=== PATIENT | female | born 1965 | race Caucasian/White ===

== ENCOUNTER → 2017-01-01 | Outpatient (CLI) | payer MEDICARE, MEDICAID ==
[~2017-01-01] MED LIST: ASPI81TA83 OR; FURO20TA2 OR; GABAPOW41 PO; IBUP600T OR; MYLI40DR OR; PAXIL PO; POTA-77 PO; RANTIDINE PO; VERAMIST; VICODIN PO; VITAMIN B PO; VITAMIN D PO
--- NOTE | 2017-01-01 14:34 | REP ---
CT LUMBAR SPINE WITHOUT CONTRAST: HISTORY: Back pain. Comparison CT 10/21/2008 and MR of 05/31/2012. A rudimentary disc is present at the S1-2 level. There is no disc bulge or herniation at the L1-2 through L3-4 levels. There is hypertrophy of the posterior articulating facets at the L3-4 level. The nerves exit the neural foramina without compression. A diffuse disc bulge is present at the L4-5 level. There is minimal compression of the thecal sac. There is hypertrophy of the posterior articulating facets. There compression of the right L4 nerve and the neural foramen. The left L4 nerve exits the neural foramen without compression. A diffuse disc bulge is present at the L5-S1 level. There is minimal compression of the thecal sac. There is hypertrophy of the posterior articulating facets. There is compression of the L5 nerves in the neural foramina. The L3-4 through L5-S1 intervertebral discs are decreased in height. Vacuum phenomenon is present at the L5-S1 level. These findings are consistent with disc degeneration. There is scoliosis convex to the left. IMPRESSION: 1. Diffuse disc bulge at the L4-5 level with minimal thecal sac compression. There is compression of the right L4 nerve in the neural foramen. This is a new finding. 2. There is a diffuse bulge at the L5-S1 level with minimal thecal sac compression. There is compression of the L5 nerves in the neural foramina. The L5 nerve compression is a new finding. Signed by Santy Montes MD 01/01/2017 02:46 P
== END ==
LOC: M RAD 13:30
PROVIDERS: ATTEND Physician Assistant Medical
DX: M51.06 Intervertebral disc disorders with myelopathy, lumbar region (principal); M48.06 Spinal stenosis, lumbar region; M47.896 Other spondylosis, lumbar region

== ENCOUNTER → 2017-03-22 | Outpatient (CLI) | payer MEDICARE, OTHER ==
--- NOTE | 2017-03-22 15:10 | REP ---
Clinical: Chronic chest pain. Technique: PA and lateral. Comparison: 08/27/2011. Findings: Evidence of prior sternotomy as well as pleural parenchymal changes and old rib fractures involving the left hemithorax are essentially stable. The right hemithorax is well-aerated and clear. The cardiac silhouette is unchanged. No acute cardiopulmonary process identified. No focal consolidation, effusion, or pneumothorax. Impression: Chronic stable changes primarily involving the left hemithorax. No obvious acute process. If the patient remains symptomatic consider chest CT for further investigation.
--- NOTE | 2017-03-22 15:24 | REP ---
Lumbar spine seven views including lateral views with flexion and extension: Comparison is 11/24/2009. There is mild scoliosis convex left, unchanged. Vertebral body heights and alignment are normal and unchanged. No compression deformities. There is no spondylolysis or spondylolisthesis. There is no disc space narrowing as previously. However, there are small anterior osteophytes at T11-12, L1-2, L3-4, L4-5 and L5 S1 compatible with mild multilevel degenerative disc disease. This is unchanged. The pedicles, facet articulations and sacroiliac articulations are unremarkable and unchanged. There are multiple old healed left lower rib fractures, unchanged. There is a Coretta filter in the vena cava, unchanged. There is a surgical staple line in the abdominal right lower quadrant, unchanged. There are multiple pelvic calcifications, unchanged, likely phleboliths. There is no listhesis on the lateral views with flexion or extension. Impression: Mild scoliosis. Multilevel mild degenerative disc disease. No listhesis. No listhesis on flexion or extension. No significant change from the prior study. If symptoms persist or worsen, consider MRI. Signed by Tyler Guerrero MD 03/22/2017 03:16 P
--- NOTE | 2017-03-22 15:29 | REP ---
AP view of the pelvis: Single view. History: Chronic pain. Chest pain. Comparison study is from January 02, 2007. Findings: There is old post-traumatic deformity of the inferior pubic ramus on the right and possibly the left. The 2006 study shows fractures there. There are sutures in the right lower abdomen. Pelvic phleboliths are noted. Sacrum and SI joints are intact. Hip joint spaces are preserved. There is a mild levoconvex curve in the lumbar spine and there is a vena cava filter noted at the top of the imaging field of view. 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 Mild osteoarthritis of the hips bilaterally. Postoperative changes in the abdomen.
== END ==
LOC: M CLY 14:09
PROVIDERS: ATTEND Family Medicine
DX: M51.34 Other intervertebral disc degeneration, thoracic region (principal); M51.37 Other intervertebral disc degeneration, lumbosacral region; M51.36 Other intervertebral disc degeneration, lumbar region; M41.9 Scoliosis, unspecified; M16.0 Bilateral primary osteoarthritis of hip; Z87.81 Personal history of (healed) traumatic fracture; R07.89 Other chest pain; M54.42 Lumbago with sciatica, left side

== ENCOUNTER → 2017-11-29 | Outpatient (CLI) | payer MEDICARE | LOC: M WHC 08:28 | DX: Z01.419 Encounter for gynecological examination (general) (routine) without abnormal findings (principal); Z12.31 Encounter for screening mammogram for malignant neoplasm of breast (principal); Z12.12 Encounter for screening for malignant neoplasm of rectum | CPT/HCPCS: 77067 ==

== ENCOUNTER → 2018-09-16 | Outpatient (REF) | payer MEDICARE ==
[2018-09-16 16:44] LABS: RHEUMATOID FACTOR QUANT < 10.0 IU/ML (<15.0)
[2018-09-16 17:23] LABS: ERYTHROCYTE SEDIMENTATION RATE 8 mm/hr (0-30)
[2018-09-18 14:22] LABS: ANTINUCLEAR ANTIBODIES DIRECT Negative (Negative)
[2018-09-23 10:06] LABS: DRVV SCREEN 39.4 SEC
== END ==
LOC: M LABDRAWC 16:12
DX: M25.50 Pain in unspecified joint (principal); R21 Rash and other nonspecific skin eruption
CPT/HCPCS: 85730

== ENCOUNTER → 2018-10-24 | Outpatient (REF) | payer MEDICARE ==
[2018-10-24 16:22] LABS: HEMATOCRIT 42.6 % (36.0-47.0); HEMOGLOBIN 13.7 g/dl (12.0-15.5); MEAN CORPUSCULAR HEMOGLOBIN 29.2 pg (27.0-33.0); MEAN CORPUSCULAR HGB CONC 32.2 g/dl (32.0-36.5); MEAN CORPUSCULAR VOLUME 90.8 fl (80.0-96.0); PLATELET COUNT, AUTOMATED 208 10^3/uL (150-450); RED BLOOD COUNT 4.69 10^6/uL (4.00-5.40); RED CELL DISTRIBUTION WIDTH 13.2 % (11.5-14.5); WHITE BLOOD COUNT 5.2 10^3/uL (4.0-10.0)
[2018-10-24 16:25] LABS: BLOOD UREA NITROGEN 12 MG/DL (7-18); CREATININE FOR GFR 0.62 MG/DL (0.55-1.30); GLUCOSE, FASTING 89 MG/DL (70-100)
[2018-10-24 16:26] LABS: ALBUMIN 4.1 GM/DL (3.2-5.2); ALBUMIN/GLOBULIN RATIO 1.37 (1.00-1.93); ALKALINE PHOSPHATASE 75 U/L (45-117); ALT/SGPT 18 U/L (12-78); ANION GAP 8 MEQ/L (8-16); AST/SGOT 13 U/L (7-37); BILIRUBIN,TOTAL 0.4 MG/DL (0.2-1.0); CARBON DIOXIDE LEVEL 28 MEQ/L (21-32); CHLORIDE LEVEL 105 MEQ/L (98-107); CHOLESTEROL LEVEL 190 MG/DL (<200); CHOLESTEROL RISK RATIO 2.533 (<5); GLOMERULAR FILTRATION RATE > 60.0 (>51); HDL CHOLESTEROL 75 MG/DL (>40); LDL CHOLESTEROL 96 MG/DL (<100); NON-HDL-C 115 MG/DL; POTASSIUM SERUM 3.9 MEQ/L (3.5-5.1); SODIUM LEVEL 141 MEQ/L (136-145); TOTAL PROTEIN 7.1 GM/DL (6.4-8.2); TRIGLYCERIDES LEVEL 93 MG/DL (<150)
== END ==
LOC: M SFHCCLAY 10:50
DX: M79.7 Fibromyalgia (principal); Z86.79 Personal history of other diseases of the circulatory system
CPT/HCPCS: 80053

== ENCOUNTER → 2018-10-24 | Outpatient (CLI) | payer MEDICARE | LOC: M CLY 11:47 | DX: M25.752 Osteophyte, left hip (principal); M25.552 Pain in left hip | CPT/HCPCS: 73502 ==

== ENCOUNTER → 2018-12-01 | Outpatient (CLI) | payer MEDICARE ==
--- NOTE | 2018-12-01 10:37 | REPMRS ---
Patient History The patient states she had a clinical breast exam in 11/2018. Patient is postmenopausal. Family history of ovarian cancer in paternal aunt. Taking estrogen for 4 years. 3D TOMOSYNTHESIS WAS PERFORMED. Digital Woman Screen Mammo: December 01, 2018 - Exam #: [id number] Bilateral CC and MLO view(s) were taken. Technologist: Deb Bennett, Technologist Prior study comparison: November 29, 2017, digital woman screen mammo performed at [facility] to [facility]. July 03, 2016, digital woman screen mammo performed at [facility] to [facility]. FINDINGS: There are scattered fibroglandular densities. There has been no change in the appearance of the mammogram from the prior studies. There is a mild amount of residual fibroglandular tissue which is fairly symmetric. There is no interval development of dominant mass, architectural distortion, or clustered microcalcification suggestive of malignancy. Assessment: BI-RADS/ACR category 1 mammogram. Negative Mammogram. Recommendation Routine screening mammogram in 1 year (for women over age 40). This mammogram was interpreted with the aid of an FDA-approved computer-aided dectection system. Electronically Signed By: Tyler Ojeda MD 12/01/18 [id number]
== END ==
LOC: M WHC 09:03
PROVIDERS: ATTEND Nurse Practitioner Women's Health
DX: Z01.419 Encounter for gynecological examination (general) (routine) without abnormal findings (principal); Z12.31 Encounter for screening mammogram for malignant neoplasm of breast; Z78.0 Asymptomatic menopausal state; Z92.23 Personal history of estrogen therapy
CPT/HCPCS: 77063; 77067; G0101

== ENCOUNTER → 2019-11-05 | Outpatient (REF) | payer MEDICARE ==
[2019-11-05 11:47] LABS: HEMATOCRIT 41.7 % (36.0-47.0); HEMOGLOBIN 13.3 g/dl (12.0-15.5); MEAN CORPUSCULAR HGB CONC 31.9 g/dl (32.0-36.5); PLATELET COUNT, AUTOMATED 226 10^3/uL (150-450); RED BLOOD COUNT 4.58 10^6/uL (4.00-5.40); WHITE BLOOD COUNT 6.9 10^3/uL (4.0-10.0)
[2019-11-05 12:11] LABS: ALBUMIN 3.8 GM/DL (3.2-5.2); ALT/SGPT 23 U/L (12-78); BILIRUBIN,TOTAL 0.5 MG/DL (0.2-1.0); BLOOD UREA NITROGEN 10 MG/DL (7-18); CARBON DIOXIDE LEVEL 26 MEQ/L (21-32); CHLORIDE LEVEL 110 MEQ/L (98-107); CHOLESTEROL LEVEL 187 MG/DL (<200); CHOLESTEROL RISK RATIO 2.791 (<5); CREATININE FOR GFR 0.63 MG/DL (0.55-1.30); GLOMERULAR FILTRATION RATE > 60.0 (>51); GLUCOSE, FASTING 82 MG/DL (70-100); HDL CHOLESTEROL 67 MG/DL (>40); LDL CHOLESTEROL 104 MG/DL (<100); NON-HDL-C 120 MG/DL; POTASSIUM SERUM 3.7 MEQ/L (3.5-5.1); SODIUM LEVEL 144 MEQ/L (136-145); TOTAL PROTEIN 6.9 GM/DL (6.4-8.2); TRIGLYCERIDES LEVEL 80 MG/DL (<150)
== END ==
LOC: M SFHCCLAY 07:08
PROVIDERS: ATTEND Family Medicine
DX: K43.2 Incisional hernia without obstruction or gangrene (principal); I10 Essential (primary) hypertension

== ENCOUNTER → 2019-12-02 | Outpatient (CLI) | payer MEDICARE ==
--- NOTE | 2019-12-02 10:29 | REP ---
BILATERAL SCREENING DIGITAL MAMMOGRAM WITH 3D TOMOSYNTHESIS: There are no palpable abnormalities or other breast complaints. The the patient states she had a clinical breast examination November,. The Tyrer-Cuzick Score is: 8.0% . Comparison is 03/25/2014. There are scattered areas of fibroglandular density. There is no dominant mass, micro calcific cluster or architectural distortion that would indicate malignancy. There are no additional findings on 3D tomosynthesiss. There is no change from the prior study. Impression: BIRADS/ACR category 1 mammogram. Negative. Recommendation: Routine annual screening mammography. This mammogram was interpreted with the aid of a FDA approved computer-aided detection system. A. Negative mammogram reports should not delay biopsy if a dominant or clinically suspicious mass is present. B. Not all breast cancers are identified by mammography or tomosynthesis. C. Adenosis and dense breasts may obscure an underlying neoplasm. Patient letter M1. Electronically Signed by Tyler Guerrero MD 12/02/2019 10:20 A
== END ==
LOC: M WHC 08:48
PROVIDERS: ATTEND Nurse Practitioner Women's Health
DX: Z01.419 Encounter for gynecological examination (general) (routine) without abnormal findings (principal); Z12.31 Encounter for screening mammogram for malignant neoplasm of breast
CPT/HCPCS: 77063; 77067; G0101; G0463

== ENCOUNTER → 2020-11-02 | Outpatient (REF) | payer MEDICARE ==
[2020-11-02 12:02] LABS: ALBUMIN 3.8 GM/DL (3.2-5.2); ALT/SGPT 15 U/L (12-78); BILIRUBIN,TOTAL 0.5 MG/DL (0.2-1.0); BLOOD UREA NITROGEN 13 MG/DL (7-18); CARBON DIOXIDE LEVEL 29 MEQ/L (21-32); CHLORIDE LEVEL 106 MEQ/L (98-107); CHOLESTEROL LEVEL 182 MG/DL (<200); CHOLESTEROL RISK RATIO 2.676 (<5); CREATININE FOR GFR 0.62 MG/DL (0.55-1.30); FREE T4 0.88 NG/DL (0.76-1.46); GLOMERULAR FILTRATION RATE > 60.0 (>51); GLUCOSE, FASTING 82 MG/DL (70-100); HDL CHOLESTEROL 68 MG/DL (>40); LDL CHOLESTEROL 99 MG/DL (<100); NON-HDL-C 114 MG/DL; SODIUM LEVEL 141 MEQ/L (136-145); TOTAL PROTEIN 6.6 GM/DL (6.4-8.2); TRIGLYCERIDES LEVEL 77 MG/DL (<150)
[2020-11-02 12:05] LABS: VITAMIN B12 LEVEL 388 PG/ML (247-911)
[2020-11-02 13:29] LABS: HEMOGLOBIN A1c 5.4 %
== END ==
LOC: M SFHCCLAY 07:06
PROVIDERS: ATTEND Family Medicine
DX: R20.2 Paresthesia of skin (principal); I10 Essential (primary) hypertension; Z79.899 Other long term (current) drug therapy

== ENCOUNTER → 2020-12-08 | Outpatient (CLI) | payer MEDICARE ==
--- NOTE | 2020-12-08 12:50 | REPMRS ---
Patient History The patient states she had a clinical breast exam in December 2020.Family history of ovarian cancer in paternal aunt. Taking estrogen for 4 years. Digital Woman Screen Mammo: December 08, 2020 - Exam #: [id number] Bilateral CC and MLO view(s) were taken. Technologist: Yasmeen Michel, Technologist Prior study comparison: December 02, 2019, bilateral digital woman screen mammo performed at [facility]. December 01, 2018, bilateral digital woman screen mammo performed at [facility]. November 29, 2017, digital woman screen mammo performed at [facility]. FINDINGS: There are scattered fibroglandular densities. The Volpara volumetric breast density category is:B. There has been no change in the appearance of the mammogram from the prior studies. There is a mild amount of scattered fibroglandular density which is fairly symmetric. There is no interval development of dominant mass, architectural distortion, or grouped microcalcification suggestive of malignancy. 3-D tomosynthesis shows no additional findings. Assessment: BI-RADS/ACR category 1 mammogram. Negative Mammogram. Recommendation Routine screening mammogram of both breasts in 1 year (for women over age 40). This patient's [facility] Lifetime Breast Cancer Risk is estimated at 7.8 %. This mammogram was interpreted with the aid of an FDA-approved computer-aided dectection system. Electronically Signed By: Lopez Recinos MD 12/08/20 [id number]
== END ==
LOC: M WHC 11:15
PROVIDERS: ATTEND Nurse Practitioner Women's Health
DX: Z01.419 Encounter for gynecological examination (general) (routine) without abnormal findings (principal); Z12.31 Encounter for screening mammogram for malignant neoplasm of breast; Z92.23 Personal history of estrogen therapy
CPT/HCPCS: 77063; 77067; G0101

== ENCOUNTER → 2021-01-17 | Outpatient (REF) | payer MEDICARE ==
[2021-01-17 13:48] LABS: ALBUMIN 3.5 GM/DL (3.2-5.2); ALT/SGPT 25 U/L (12-78); BILIRUBIN,TOTAL 0.2 MG/DL (0.2-1.0); BLOOD UREA NITROGEN 18 MG/DL (7-18); CARBON DIOXIDE LEVEL 30 MEQ/L (21-32); CHLORIDE LEVEL 108 MEQ/L (98-107); CREATININE FOR GFR 0.56 MG/DL (0.55-1.30); FREE T4 0.75 NG/DL (0.76-1.46); GLOMERULAR FILTRATION RATE > 60.0 (>51); GLUCOSE, FASTING 81 MG/DL (70-100); SODIUM LEVEL 141 MEQ/L (136-145); TOTAL PROTEIN 6.5 GM/DL (6.4-8.2)
== END ==
LOC: M LABDRWAD 11:33
PROVIDERS: ATTEND Physician Assistant
DX: I11.9 Hypertensive heart disease without heart failure (principal); R00.2 Palpitations

== ENCOUNTER → 2022-01-18 | Outpatient (CLI) | payer MEDICARE | LOC: M WHC 09:56 | PROVIDERS: ATTEND Advanced Practice Midwife | DX: Z12.31 Encounter for screening mammogram for malignant neoplasm of breast (principal); N64.52 Nipple discharge; Z78.0 Asymptomatic menopausal state; Z92.23 Personal history of estrogen therapy | CPT/HCPCS: 76642; 77066; G0279 ==

== ENCOUNTER → 2022-06-01 | Outpatient (REF) | payer MEDICARE ==
[2022-06-01 11:54] LABS: HEMATOCRIT 39.5 % (36.0-47.0); HEMOGLOBIN 13.1 g/dl (12.0-15.5); MEAN CORPUSCULAR HEMOGLOBIN 30.1 pg (27.0-33.0); MEAN CORPUSCULAR HGB CONC 33.2 g/dl (32.0-36.5); MEAN CORPUSCULAR VOLUME 90.8 fl (80.0-96.0); PLATELET COUNT, AUTOMATED 242 10^3/uL (150-450); RED BLOOD COUNT 4.35 10^6/uL (4.00-5.40); WHITE BLOOD COUNT 5.9 10^3/uL (4.0-10.0)
[2022-06-01 12:29] LABS: ALBUMIN 3.7 GM/DL (3.2-5.2); ALT/SGPT 20 U/L (12-78); BILIRUBIN,TOTAL 0.4 MG/DL (0.2-1.0); BLOOD UREA NITROGEN 16 MG/DL (7-18); CALCIUM LEVEL 9.3 MG/DL (8.5-10.1); CARBON DIOXIDE LEVEL 28 MEQ/L (21-32); CHLORIDE LEVEL 108 MEQ/L (98-107); FREE T4 0.81 NG/DL (0.76-1.46); GLOMERULAR FILTRATION RATE > 60.0 (>51); GLUCOSE, FASTING 92 MG/DL (70-100); MAGNESIUM LEVEL 2.2 MG/DL (1.8-2.4); NT-PRO BNP 47 PG/ML (<125); POTASSIUM SERUM 4.1 MEQ/L (3.5-5.1); SODIUM LEVEL 141 MEQ/L (136-145)
== END ==
LOC: M LABDRAWC 11:23
PROVIDERS: ATTEND Physician Assistant
DX: R06.02 Shortness of breath (principal); R00.2 Palpitations

== ENCOUNTER → 2023-01-21 | Outpatient (CLI) | payer MEDICARE | LOC: M WHC 09:54 | PROVIDERS: ATTEND Family Medicine | DX: Z12.31 Encounter for screening mammogram for malignant neoplasm of breast (principal) ==

== ENCOUNTER → 2023-05-30 | Outpatient (REF) | payer MEDICARE ==
[2023-05-30 11:30] LABS: HEMATOCRIT 39.1 % (36.0-47.0); HEMOGLOBIN 12.8 g/dl (12.0-15.5); MEAN CORPUSCULAR HEMOGLOBIN 29.5 pg (27.0-33.0); MEAN CORPUSCULAR HGB CONC 32.7 g/dl (32.0-36.5); MEAN CORPUSCULAR VOLUME 90.1 fl (80.0-96.0); PLATELET COUNT, AUTOMATED 227 10^3/uL (150-450); RED BLOOD COUNT 4.34 10^6/uL (4.00-5.40); WHITE BLOOD COUNT 6.3 10^3/uL (4.0-10.0)
[2023-05-30 11:34] LABS: ALBUMIN 3.8 G/DL (3.2-5.2); ALKALINE PHOSPHATASE 66 U/L (46-116); ALT/SGPT 14 U/L (7.0-40); AST/SGOT 9 U/L (<34); BILIRUBIN,TOTAL 0.4 MG/DL (0.3-1.2); BLOOD UREA NITROGEN 11 MG/DL (9-23); CARBON DIOXIDE LEVEL 27 MMOL/L (20-31); CHLORIDE LEVEL 108 MMOL/L (98-107); CHOLESTEROL LEVEL 174 MG/DL (<200); CHOLESTEROL RISK RATIO 2.35 (<5); CREATININE FOR GFR 0.55 MG/DL (0.55-1.30); GLOMERULAR FILTRATION RATE > 60.0 (>51); GLUCOSE, FASTING 89 MG/DL (60-100); LDL CHOLESTEROL 85.2 MG/DL (<100); SODIUM LEVEL 143 MMOL/L (136-145); TOTAL PROTEIN 6.6 G/DL (5.7-8.2); TRIGLYCERIDES LEVEL 74 MG/DL (<150)
[2023-05-30 11:36] LABS: THYROID STIMULATING HORMONE 1.967 uIU/ML (0.55-4.78)
== END ==
LOC: M SFHCCLAY 07:40
PROVIDERS: ATTEND Family Medicine
DX: K21.9 Gastro-esophageal reflux disease without esophagitis (principal); I10 Essential (primary) hypertension; Z86.79 Personal history of other diseases of the circulatory system

== ENCOUNTER → 2023-06-21 | Outpatient (REF) | payer MEDICARE | LOC: M SFHCCLAY 09:57 | PROVIDERS: ATTEND Family Medicine | DX: L82.1 Other seborrheic keratosis (principal) ==

== ENCOUNTER → 2023-09-03 | Outpatient (REF) | payer MEDICARE | LOC: M SFHCCLAY 14:21 | PROVIDERS: ATTEND Physician Assistant | DX: R50.9 Fever, unspecified (principal) ==

== ENCOUNTER → 2024-01-09 | Outpatient (REF) | payer MEDICARE | LOC: M SFHCCLAY 10:27 | PROVIDERS: ATTEND Family Medicine | DX: I10 Essential (primary) hypertension (principal); Z86.79 Personal history of other diseases of the circulatory system; K21.9 Gastro-esophageal reflux disease without esophagitis; R20.2 Paresthesia of skin ==

== ENCOUNTER → 2024-01-23 | Outpatient (REF) | payer MEDICARE ==
[2024-01-23 12:02] LABS: HEMATOCRIT 36.7 % (36.0-47.0); HEMOGLOBIN 12.3 g/dl (12.0-15.5); MEAN CORPUSCULAR HEMOGLOBIN 29.1 pg (27.0-33.0); MEAN CORPUSCULAR HGB CONC 33.5 g/dl (32.0-36.5); MEAN CORPUSCULAR VOLUME 86.8 fl (80.0-96.0); PLATELET COUNT, AUTOMATED 261 10^3/uL (150-450); RED BLOOD COUNT 4.23 10^6/uL (4.00-5.40); WHITE BLOOD COUNT 5.9 10^3/uL (4.0-10.0)
[2024-01-23 12:31] LABS: ALBUMIN 3.6 G/DL (3.2-5.2); ALKALINE PHOSPHATASE 74 U/L (46-116); ALT/SGPT 103 U/L (7.0-40); AST/SGOT 43 U/L (<34); BILIRUBIN,TOTAL 0.5 MG/DL (0.3-1.2); BLOOD UREA NITROGEN 11 MG/DL (9-23); CALCIUM LEVEL 8.9 MG/DL (8.5-10.1); CARBON DIOXIDE LEVEL 29 MMOL/L (20-31); CHLORIDE LEVEL 110 MMOL/L (98-107); CHOLESTEROL LEVEL 148 MG/DL (<200); CHOLESTEROL RISK RATIO 2.73 (<5); CREATININE FOR GFR 0.56 MG/DL (0.55-1.30); GLOMERULAR FILTRATION RATE > 60.0 (>51); GLUCOSE, FASTING 90 MG/DL (60-100); HDL CHOLESTEROL 54.1 MG/DL (>40); LDL CHOLESTEROL 76.9 MG/DL (<100); NON-HDL-C 93.9 MG/DL; POTASSIUM SERUM 3.7 MMOL/L (3.5-5.1); SODIUM LEVEL 143 MMOL/L (136-145); THYROID STIMULATING HORMONE 1.665 uIU/ML (0.55-4.78); TOTAL PROTEIN 6.3 G/DL (5.7-8.2); TRIGLYCERIDES LEVEL 85 MG/DL (<150)
[2024-01-23 12:32] LABS: FREE T4 1.15 NG/DL (0.89-1.76)
[2024-01-23 13:06] LABS: HEMOGLOBIN A1c 5.5 % (4.0-6.0)
== END ==
LOC: M SFHCCLAY 07:07
PROVIDERS: ATTEND Family Medicine
DX: I10 Essential (primary) hypertension (principal); Z86.79 Personal history of other diseases of the circulatory system; K21.9 Gastro-esophageal reflux disease without esophagitis; R20.2 Paresthesia of skin; Z79.899 Other long term (current) drug therapy

== ENCOUNTER → 2024-02-07 | Outpatient (CLI) | payer MEDICARE, SELFPAY | LOC: M WHC 08:54 | PROVIDERS: ATTEND Family Medicine | DX: Z12.31 Encounter for screening mammogram for malignant neoplasm of breast (principal) ==

== ENCOUNTER → 2024-02-14 | Outpatient (REF) | payer MEDICARE ==
[2024-02-14 12:30] LABS: IRON (FE) 102 UG/DL (50-170)
[2024-02-14 12:32] LABS: HEPATITIS B SURFACE ANTIBODY NEGATIVE (POSITIVE); PERCENT SATURATION 30.6 % (13.2-45.0); TOTAL IRON BINDING CAPACITY 333 UG/DL (250-425)
[2024-02-14 13:04] LABS: HEPATITIS C VIRUS ABY INDEX < 0.02 INDEX (<0.8)
== END ==
LOC: M SFHCCLAY 07:16
PROVIDERS: ATTEND Family Medicine
DX: R74.01 Elevation of levels of liver transaminase levels (principal); Z72.89 Other problems related to lifestyle; Z11.59 Encounter for screening for other viral diseases

== ENCOUNTER → 2024-03-12 | Outpatient (REF) | payer MEDICARE ==
[2024-03-12 12:05] LABS: ALBUMIN 3.3 G/DL (3.2-5.2); BILIRUBIN,DIRECT 0.1 MG/DL (<0.4); BILIRUBIN,TOTAL 0.5 MG/DL (0.3-1.2); TOTAL PROTEIN 6.2 G/DL (5.7-8.2)
== END ==
LOC: M SFHCCLAY 07:00
PROVIDERS: ATTEND Family Medicine
DX: R74.01 Elevation of levels of liver transaminase levels (principal)

== ENCOUNTER → 2024-04-16 | Outpatient (REF) | payer MEDICARE ==
[2024-04-16 12:10] LABS: ALBUMIN 3.8 G/DL (3.2-5.2); BILIRUBIN,DIRECT 0.1 MG/DL (<0.4); BILIRUBIN,TOTAL 0.5 MG/DL (0.3-1.2); TOTAL PROTEIN 6.7 G/DL (5.7-8.2)
== END ==
LOC: M SFHCCLAY 08:04
PROVIDERS: ATTEND Family Medicine
DX: K21.9 Gastro-esophageal reflux disease without esophagitis (principal); K75.9 Inflammatory liver disease, unspecified

== ENCOUNTER → 2024-09-18 | Outpatient (CLI) | payer MEDICARE | LOC: M CLY 11:26 | PROVIDERS: ATTEND Family Medicine | DX: M25.562 Pain in left knee (principal); Z53.9 Procedure and treatment not carried out, unspecified reason ==

== ENCOUNTER → 2024-09-18 | Outpatient (CLI) | payer MEDICARE | LOC: M CLY 13:13 | PROVIDERS: ATTEND Family Medicine | DX: M25.562 Pain in left knee (principal) ==

== ENCOUNTER → 2024-10-05 | Outpatient (CLI) | payer MEDICARE | LOC: M CARPUL 07:45 | PROVIDERS: ATTEND Physician Assistant | DX: R06.02 Shortness of breath (principal) ==

== ENCOUNTER → 2025-02-08 | Outpatient (CLI) | payer MEDICARE | LOC: M WHC 07:49 | PROVIDERS: ATTEND Physician Assistant | DX: Z12.31 Encounter for screening mammogram for malignant neoplasm of breast (principal); R92.323 Mammographic fibroglandular density, bilateral breasts ==

== ENCOUNTER → 2025-02-22 | Outpatient (REF) | payer MEDICARE ==
[2025-02-22 14:36] LABS: ALBUMIN 3.9 G/DL (3.2-5.2); ALKALINE PHOSPHATASE 64 U/L (35-104); ALT/SGPT 13 U/L (7.0-40); AST/SGOT 12 U/L (<34); BILIRUBIN,TOTAL 0.5 MG/DL (0.3-1.2); BLOOD UREA NITROGEN 12 MG/DL (9-23); CALCIUM LEVEL 8.8 MG/DL (8.3-10.6); CARBON DIOXIDE LEVEL 30 MMOL/L (20-31); CHLORIDE LEVEL 106 MMOL/L (98-107); CHOLESTEROL LEVEL 180 MG/DL (<200); CHOLESTEROL RISK RATIO 2.41 (<5); CREATININE FOR GFR 0.54 MG/DL (0.55-1.30); GLOMERULAR FILTRATION RATE > 90.0 (>45); GLUCOSE, FASTING 90 MG/DL (74-106); HDL CHOLESTEROL 74.6 MG/DL (>40); LDL CHOLESTEROL 93.6 MG/DL (<100); NON-HDL-C 105.4 MG/DL; POTASSIUM SERUM 4.1 MMOL/L (3.5-5.1); SODIUM LEVEL 142 MMOL/L (136-145); TOTAL PROTEIN 6.4 G/DL (5.7-8.2); TRIGLYCERIDES LEVEL 59 MG/DL (<150)
== END ==
LOC: M SFHCCLAY 07:09
PROVIDERS: ATTEND Physician Assistant
DX: I10 Essential (primary) hypertension (principal); F32.5 Major depressive disorder, single episode, in full remission; K21.9 Gastro-esophageal reflux disease without esophagitis; Z90.710 Acquired absence of both cervix and uterus; Z12.11 Encounter for screening for malignant neoplasm of colon; Z79.899 Other long term (current) drug therapy